=== PATIENT | male | born 1995 | race Caucasian/White ===

== ENCOUNTER 2025-05-30 16:11 | Emergency (ER) | payer OTHER ==
[~2025-05-30] VITALS: Ht 182.9 cm; Wt 89.0 kg
[2025-05-30 16:14] VITALS: O2SAT 98
[2025-05-30] MEDS: HYDROXYZINE 25MG TABLET PO ONE (17:22)
[2025-05-30 18:36] LABS: TROPONIN I HIGH SENSITIVITY < 4 ng/L (3.0-53)
[2025-05-30] MEDS: BUSPIRONE HCL 10MG TABLET PO ONE (18:58)
[2025-05-30 19:59] VITALS: BP 141/87; PULSE 97; RESP 15; TEMP 37; O2SAT 97
== END 2025-05-30 20:00 | disposition home or self-care (01) ==
LOC: ER 16:11
DX: F41.9 Anxiety disorder, unspecified (principal)
CPT/HCPCS: 36415; 84484; 93005; 99284